=== PATIENT | female | born 2000 | race Caucasian/White ===

== ENCOUNTER 2018-09-14 09:24 | Observation (INO) | payer BC ==
--- NOTE | 2018-09-14 09:58 | ERPHSYRPT ---
- History of Present Illness Time Seen by Provider: 09/14/18 09:40 Source: patient, family Exam Limitations: no limitations Physician History: The patient is a 18-year-old female with her mother complaining of bilateral bicep pain and stiffness since Saturday (5 days ago) since lifting weights at that time. The stiffness is not as bad as it was initially. She denies fever or chills. She denies numbness or tingling. She states her urine is darker than usual. She and her mother are worried about rhabdomyolysis. Her boyfriend got rhabdomyolysis last year when he was weight lifting for his baseball team. 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 She has been taking ibuprofen. Her past medical history is unremarkable. Occurred: days ago (5) Method of Injury: sports injury Quality: aching, tightness Severity of Pain-Max: moderate Severity of Pain-Current: moderate Extremities Pain Location: arm: bilateral Modifying Factors: Improves With: nothing Associated Symptoms: none Allergies/Adverse Reactions: No Known Drug Allergies Allergy (Unverified 09/14/18 09:52) Home Medications: Escitalopram Oxalate [Lexapro] 20 mg PO DAILY 09/14/18 [History] Norgestimate-Ethinyl Estradiol [Tri Femynor 28 Tablet] 1 ea PO DAILY 09/14/18 [ History] - Review of Systems Constitutional: No Fever, No Chills Eyes: No Symptoms Ears, Nose, & Throat: No Symptoms Respiratory: No Cough, No Dyspnea Cardiac: No Chest Pain, No Edema, No Syncope Abdominal/Gastrointestinal: No Abdominal Pain, No Nausea, No Vomiting, No Diarrhea Genitourinary Symptoms: No Dysuria Musculoskeletal: Injury, Myalgias Skin: No Rash Neurological: No Dizziness, No Focal Weakness, No Sensory Changes Psychological: No Symptoms Endocrine: No Symptoms Hematologic/Lymphatic: No Symptoms Immunological/Allergic: No Symptoms All Other Systems: Reviewed and Negative - Nursing Vital Signs Nursing Vital Signs: Initial Vital Signs Temperature 98.2 F 09/14/18 09:37 Pulse Rate 72 09/14/18 09:37 Respiratory Rate 18 09/14/18 09:37 Blood Pressure 130/71 09/14/18 09:37 O2 Sat by Pulse Oximetry 99 09/14/18 09:37 Pain Scale Pain Intensity 4 - Physical Exam General Appearance: alert Eyes, Ears, Nose, Throat Exam: moist mucous membranes Neck Exam: non-tender, supple Cardiovascular/Respiratory Exam: chest non-tender, normal breath sounds, regular rate/rhythm, no respiratory distress Abdominal Exam: non-tender, No guarding Back Exam: normal inspection, No vertebral tenderness Shoulder Exam: normal inspection Elbow/Forearm Exam: soft tissue tenderness (Examination of the right biceps shows some mild limited range of motion with full extension. There is mild tenderness to palpation of the biceps. Examination of the left biceps shows normal range of motion.) Wrist Exam: normal inspection Hand Exam: normal inspection Neuro/Tendon Exam: normal sensation, normal motor functions Mental Status Exam: alert, oriented x 3, cooperative Skin Exam: normal color, warm, dry SpO2 Interpretation: normal Oxygen Delivery: Room Air Ordered Tests: Active Orders 24 hr Category Date Time Status CBC W DIFF Stat Lab 09/14/18 10:15 Completed CK (IN-HOUSE) [CK-Creatinine Phosphokinase] Stat Lab 09/14/18 10:15 Completed CMP Stat Lab 09/14/18 10:15 Completed ESR [Erythrocyte Sedimentation Rate] Stat Lab 09/14/18 10:15 Completed Lab/Rad Data: Laboratory Result Diagrams 09/14/18 10:15 09/14/18 10:15 Laboratory Results 09/14/18 09/14/18 09/14/18 Range/Units 10:15 10:15 10:15 WBC 7.5 (4.0-10.5) K/mm3 RBC 3.90 L (4.1-5.4) M/mm3 Hgb 12.1 (12.0-16.0) gm/dl Hct 36.1 (35-47) % MCV 92.6 (78-100) fl MCH 31.0 (26-32) pg MCHC 33.5 (32-36) g/dl RDW 12.4 (11.5-14.0) % Plt Count 279 (150-450) K/mm3 MPV 10.7 H (6-9.5) fl Gran % 61.3 (36.0-66.0) % Eos # (Auto) 0.21 (0-0.5) Absolute Lymphs (auto) 2.15 (1.0-4.6) Absolute Monos (auto) 0.53 (0.0-1.3) Lymphocytes % 28.6 (24.0-44.0) % Monocytes % 7.0 (0.0-12.0) % Eosinophils % 2.8 (0.00-5.0) % Basophils % 0.3 (0.0-0.4) % Absolute Granulocytes 4.62 (1.4-6.9) Basophils # 0.02 (0-0.4) ESR 13 (0-20) mm/hr Sodium 142 (137-145) mmol/L Potassium 3.8 (3.5-5.1) mmol/L Chloride 107 (98-107) mmol/L Carbon Dioxide 26 (22-30) mmol/L Anion Gap 13.6 (5-15) MEQ/L BUN 12 (7-17) mg/dL Creatinine 0.79 (0.52-1.04) mg/dL Estimated GFR > 60.0 ML/MIN Glucose 108 H (74-106) mg/dL Calcium 9.2 (8.4-10.2) mg/dL Total Bilirubin 0.50 (0.2-1.3) mg/dL AST 156 H (14-36) U/L ALT 67 H (0-35) U/L Alkaline Phosphatase 59 (38-126) U/L Creatine Kinase 8587 H (30-135) U/L Serum Total Protein 6.7 (6.3-8.2) g/dL Albumin 4.0 (3.5-5.0) g/dL - Progress Progress: unchanged Discussed with : Cat Will see patient in: hospital (full admit) Counseled pt/family regarding: lab results, diagnosis - Departure Time of Disposition: 11:32 Departure Disposition: In-patient Admission (per Dr Shelton) Clinical Impression: Rhabdomyolysis, Elevated LFTs Condition: Stable Critical Care Time: No Referrals: JUANITA CARLSON NP [Primary Care Provider] -
[2018-09-14 10:27] LABS: BASOPHIL % 0.3 % (0.0-0.4); Basophil (Absolute #) 0.02 (0-0.4); Eosinophil % 2.8 % (0.00-5.0); Eosinophil (Absolute #) 0.21 (0-0.5); Granulocytes % 61.3 % (36.0-66.0); Hematocrit 36.1 % (35-47); Hemoglobin 12.1 gm/dl (12.0-16.0); Lymphocyte (Absolute #) 2.15 (1.0-4.6); Lymphocytes % 28.6 % (24.0-44.0); Mean Cell Volume 92.6 fl (78-100); Mean Corpuscular Hgb Concent. 33.5 g/dl (32-36); Mean Platelet Volume 10.7 fl (6-9.5); Monocyte (Absolute #) 0.53 (0.0-1.3); Platelet Count 279 K/mm3 (150-450); Red Cell Distribution Width 12.4 % (11.5-14.0); White Blood Count 7.5 K/mm3 (4.0-10.5)
[2018-09-14 10:34] LABS: ALKALINE PHOSPHATASE 59 U/L (38-126); ANION GAP 13.6 MEQ/L (5-15); BLOOD UREA NITROGEN 12 mg/dL (7-17); CHLORIDE 107 mmol/L (98-107); Calcium 9.2 mg/dL (8.4-10.2); Carbon Dioxide 26 mmol/L (22-30); Creatinine 1 0.79 mg/dL (0.52-1.04); Glucose 108 mg/dL (74-106); Potassium 3.8 mmol/L (3.5-5.1); SGOT/AST 156 U/L (14-36); SGPT/ALT 67 U/L (0-35); SODIUM 142 mmol/L (137-145); Total Protein 6.7 g/dL (6.3-8.2)
[2018-09-14 10:53] LABS: CK-Creatinine Phosphokinase 8587 U/L (30-135)
[2018-09-14 11:49] LABS: A-aADO2 5; ABG HEMOGLOBIN 12.7; ABG POTASSIUM 4.1 (3.5-5.1); ABG SITE RIGHT RADIAL; ARTERIAL BLD GAS O2 SATURATION 98.4 % (95-100); ARTERIAL BLOOD GAS BASE EXCESS 4.9 (-2.0-2.0); ARTERIAL BLOOD GAS FIO2 21 %; ARTERIAL BLOOD GAS PCO2 41 mmHg (35-45); ARTERIAL BLOOD GAS PO2 93 mmHg (75-100); ARTERIAL BLOOD GAS pH 7.46 (7.35-7.45); CARBOXYHEMOGLOBIN 1.3 % THgb (0.0-6.9); HCO3- 29.2 (22-28); HGB O2 SAT 95.8 g/dF (94-100); Methhemoglobin 1.3 % (1.4-1.5); paO2 pAO1 0.95
[2018-09-14 11:50] LABS: ALLEN TEST OK? YES
[2018-09-14] MEDS ORDERED: TYLENOL 325 MG PO PRN (12:21)
[2018-09-14] MEDS ORDERED: Zofran 4 MG/2 ML VIAL IV PRN (12:21)
[2018-09-14] MEDS: Sodium Chloride 0.9% 1000 ML 1,000 ML IV SCH ×2 (13:28→23:34)
[2018-09-14] MEDS ORDERED: MEDICATION INTERVENTION MC SCH (16:45)
[2018-09-14] MEDS ORDERED: NORCO 5/325 MG PO PRN (21:13)
--- NOTE | 2018-09-14 21:13 | PCM.HP ---
History of Present Illness - Chief Complaint Chief Complaint: Rhabdomylosis, Elevated LFT History of Present Illness: is a 18 year old female pt of Dr. Anderson who was seen in ER for bilat upper arm pain and was found to have rhabdomyolysis. She worked out her legs last Saturday (6d ago) without difficulty. The next day she worked her upper body then that night started having pain in the bilat upper extremities, just proximal to her elbows. She also thought her urine was darker than usual throughout the week, although not brown, despite drinking large amounts of water including a literal gallon of water on Saturday night. She was found to have a CK of 8,587 in the ER with BUN/Cr that were normal. She was admitted for IV fluids. She is still having bilat arm pain and would like some pain medicine this evening. Has been previously healthy and received her vaccinations. - Review of Systems Abdominal/Gastrointestinal: Other (soft stools this morning) Musculoskeletal: Other (bilat UE pain) All Other Systems: Reviewed and Negative Medications & Allergies Home Medications: Home Medication List Escitalopram Oxalate [Lexapro] 20 mg PO DAILY 09/14/18 [History Confirmed ] Norgestimate-Ethinyl Estradiol [Tri Femynor 28 Tablet] 1 ea PO DAILY 09/14/18 [ History Confirmed 09/14/18] Allergies/Adverse Reactions: Allergies Allergy/AdvReac Type Severity Reaction Status Date / Time No Known Drug Allergies Allergy Unverified 09/14/18 09:52 - Past Medical History Past Medical History: No - Female History Hx Last Menstrual Period: 2 weeks Are you now?: No - Past Surgical History Past Surgical History: Yes Musculskeletal Surgical Hx: Other Other Surgical History: pin in thumb - Social History Smoking Status: Never smoker Exposure to second hand smoke: No Alcohol: None Drug Use: none - Physical Exam Vital Signs: Vital Signs - 24 hr Temp Pulse Resp BP Pulse Ox 09/14/18 20:00 98.4 F 70 18 103/53 99 09/14/18 16:00 98.1 F 78 16 125/77 99 09/14/18 12:44 99.1 F 80 20 125/69 96 09/14/18 11:25 78 16 136/76 98 09/14/18 09:37 98.2 F 72 18 130/71 99 General Appearance: no apparent distress, alert Neurologic Exam: oriented x 3, cooperative Eye Exam: eyes nml inspection Ears, Nose, Throat Exam: moist mucous membranes Respiratory Exam: normal breath sounds, lungs clear, No crackles/rales, No rhonchi, No wheezing Cardiovascular Exam: regular rate/rhythm, normal heart sounds, No murmur Gastrointestinal/Abdomen Exam: soft, normal bowel sounds, No tenderness, No distention, No mass, No guarding, No rebound Back Exam: normal inspection, No CVA tenderness, No rash Extremity Exam: normal inspection, other (ttp just proximal to elbows anteriorly , bilat, with some fullness in the area. no erythema/lesions/exudate. no overt edema. LE no c/c/e) Skin Exam: normal color, warm, dry, No rash Results - Labs Lab/Micro Results: Lab Results-Last 24 Hours 09/14/18 09/14/18 09/14/18 Range/Units 10:15 10:15 10:15 WBC 7.5 (4.0-10.5) K/mm3 RBC 3.90 L (4.1-5.4) M/mm3 Hgb 12.1 (12.0-16.0) gm/dl Hct 36.1 (35-47) % MCV 92.6 (78-100) fl MCH 31.0 (26-32) pg MCHC 33.5 (32-36) g/dl RDW 12.4 (11.5-14.0) % Plt Count 279 (150-450) K/mm3 MPV 10.7 H (6-9.5) fl Gran % 61.3 (36.0-66.0) % Eos # (Auto) 0.21 (0-0.5) Absolute Lymphs (auto) 2.15 (1.0-4.6) Absolute Monos (auto) 0.53 (0.0-1.3) Lymphocytes % 28.6 (24.0-44.0) % Monocytes % 7.0 (0.0-12.0) % Eosinophils % 2.8 (0.00-5.0) % Basophils % 0.3 (0.0-0.4) % Absolute Granulocytes 4.62 (1.4-6.9) Basophils # 0.02 (0-0.4) ESR 13 (0-20) mm/hr Puncture Site pCO2 (35-45) mmHg pO2 (75-100) mmHg Base Excess (-2.0-2.0) O2 Saturation (94-100) g/dF ABG pH (7.35-7.45) ABG HCO3 (22-28) ABG O2 Sat (Measured) (95-100) % Dustin Test A-a Gradient a/A Ratio Hemoglobin Carboxyhemoglobin (0.0-6.9) % THgb Methemoglobin (1.4-1.5) % Temperature C POC O2 Flow Rate % Sodium 142 (137-145) mmol/L Potassium 3.8 (3.5-5.1) mmol/L Chloride 107 (98-107) mmol/L Carbon Dioxide 26 (22-30) mmol/L Anion Gap 13.6 (5-15) MEQ/L BUN 12 (7-17) mg/dL Creatinine 0.79 (0.52-1.04) mg/dL Estimated GFR > 60.0 ML/MIN Glucose 108 H (74-106) mg/dL Lactic Acid (0.4-2.0) Uric Acid (2.6-6.0) mg/dL Calcium 9.2 (8.4-10.2) mg/dL Total Bilirubin 0.50 (0.2-1.3) mg/dL AST 156 H (14-36) U/L ALT 67 H (0-35) U/L Alkaline Phosphatase 59 (38-126) U/L Creatine Kinase 8587 H (30-135) U/L Serum Total Protein 6.7 (6.3-8.2) g/dL Albumin 4.0 (3.5-5.0) g/dL 09/14/18 09/14/18 09/14/18 Range/Units 10:15 11:45 11:45 WBC (4.0-10.5) K/mm3 RBC (4.1-5.4) M/mm3 Hgb (12.0-16.0) gm/dl Hct (35-47) % MCV (78-100) fl MCH (26-32) pg MCHC (32-36) g/dl RDW (11.5-14.0) % Plt Count (150-450) K/mm3 MPV (6-9.5) fl Gran % (36.0-66.0) % Eos # (Auto) (0-0.5) Absolute Lymphs (auto) (1.0-4.6) Absolute Monos (auto) (0.0-1.3) Lymphocytes % (24.0-44.0) % Monocytes % (0.0-12.0) % Eosinophils % (0.00-5.0) % Basophils % (0.0-0.4) % Absolute Granulocytes (1.4-6.9) Basophils # (0-0.4) ESR (0-20) mm/hr Puncture Site RIGHT RADIAL pCO2 41 (35-45) mmHg pO2 93 (75-100) mmHg Base Excess 4.9 H (-2.0-2.0) O2 Saturation 95.8 (94-100) g/dF ABG pH 7.46 H (7.35-7.45) ABG HCO3 29.2 H* (22-28) ABG O2 Sat (Measured) 98.4 (95-100) % Dustin Test YES A-a Gradient 5 a/A Ratio 0.95 Hemoglobin 12.7 Carboxyhemoglobin 1.3 (0.0-6.9) % THgb Methemoglobin 1.3 L (1.4-1.5) % Temperature 37.0 C POC O2 Flow Rate 21 % Sodium (137-145) mmol/L Potassium 4.1 (3.5-5.1) mmol/L Chloride (98-107) mmol/L Carbon Dioxide (22-30) mmol/L Anion Gap (5-15) MEQ/L BUN (7-17) mg/dL Creatinine (0.52-1.04) mg/dL Estimated GFR ML/MIN Glucose (74-106) mg/dL Lactic Acid 0.8 (0.4-2.0) Uric Acid 6.0 (2.6-6.0) mg/dL Calcium (8.4-10.2) mg/dL Total Bilirubin (0.2-1.3) mg/dL AST (14-36) U/L ALT (0-35) U/L Alkaline Phosphatase (38-126) U/L Creatine Kinase (30-135) U/L Serum Total Protein (6.3-8.2) g/dL Albumin (3.5-5.0) g/dL Assessment/Plan (1) Rhabdomyolysis Current Visit: Yes Status: Acute Onset Date: ~09/14/18 Qualifiers: Encounter type: initial encounter Assessment & Plan: She is on NS at 100cc/hr. Renal function looked good in ER. Repeating labs in the morning. I discussed that she may expect a several day stay and that if renal function suffers she may or may not end up with a nephrology consult. Code(s): M62.82 - RHABDOMYOLYSIS
[2018-09-14] MEDS ORDERED: BENADRYL 50 MG/ML IV PRN (21:29)
[2018-09-14] MEDS ORDERED: Lexapro 10 MG PO SCH (22:00)
[2018-09-15 04:34] VITALS: O2SAT 98
[2018-09-15 05:42] LABS: BASOPHIL % 0.3 % (0.0-0.4); Basophil (Absolute #) 0.02 (0-0.4); Eosinophil % 2.7 % (0.00-5.0); Granulocytes % 56.4 % (36.0-66.0); Hematocrit 35.8 % (35-47); Hemoglobin 11.6 gm/dl (12.0-16.0); Lymphocyte (Absolute #) 2.45 (1.0-4.6); Lymphocytes % 33.6 % (24.0-44.0); Mean Cell Volume 93.7 fl (78-100); Mean Corpuscular Hgb Concent. 32.4 g/dl (32-36); Mean Platelet Volume 10.4 fl (6-9.5); Monocyte (Absolute #) 0.51 (0.0-1.3); Platelet Count 273 K/mm3 (150-450); Red Blood Count 3.82 M/mm3 (4.1-5.4); Red Cell Distribution Width 12.6 % (11.5-14.0); White Blood Count 7.3 K/mm3 (4.0-10.5)
[2018-09-15 05:55] LABS: Mean Corpuscular Hemoglobin 30.3 pg (26-32)
[2018-09-15 07:16] LABS: ALBUMIN 3.7 g/dL (3.5-5.0); ALKALINE PHOSPHATASE 58 U/L (38-126); BLOOD UREA NITROGEN 10 mg/dL (7-17); Carbon Dioxide 26 mmol/L (22-30); Creatinine 1 0.84 mg/dL (0.52-1.04); Glucose 94 mg/dL (74-106); Potassium 4.6 mmol/L (3.5-5.1); SGOT/AST 110 U/L (14-36); SGPT/ALT 66 U/L (0-35); SODIUM 139 mmol/L (137-145); Total Protein 6.6 g/dL (6.3-8.2)
[2018-09-15 07:17] LABS: ANION GAP 11.1 MEQ/L (5-15); CHLORIDE 107 mmol/L (98-107); Calcium 8.8 mg/dL (8.4-10.2)
[2018-09-15 08:07] VITALS: BP 116/55; PULSE 70
--- NOTE | 2018-09-15 09:29 | SSS ---
DISCHARGE DIAGNOSIS: RHABDOMYOLYSIS. HISTORY: The patient is a 18 year-old white female who reports bilateral biceps pain and stiffness. She reports lifting weights at home. She had developed stiffness and was feeling and presented herself to the emergency room with concern for rhabdomyolysis. She reports her boyfriend had previous episode of rhabdomyolysis last year and she was concerned for the possibility of this occurring. The patient was seen in the emergency room and was found to have a CPK of over 8,000 and was admitted to the hospital for IV fluid hydration and monitoring of renal functions. PAST MEDICAL HISTORY: Essentially unremarkable other than for depression for which she takes Lexapro 20 mg daily. HOME MEDICATIONS: Lexapro 20 mg daily, control pills daily. ALLERGIES: NKDA. PHYSICAL EXAMINATION: Revealed a moderately obese white female with temperature 98.2F on admission, pulse 72, respiratory rate 18, blood pressure 130/71. O2 saturation 99% on room air. HEENT: Normocephalic, atraumatic. Pupils equal round reactive to light. Extraocular movements intact. Oropharynx is pink and moist. NECK: Supple without lymphadenopathy, thyromegaly or JVD. CHEST: Clear to auscultation with good air movement bilaterally. HEART: Regular rate and rhythm without murmurs, rubs or gallops. ABDOMEN: Soft, nontender, nondistended without hepatosplenomegaly or masses. EXTREMITIES: Without clubbing, cyanosis or edema. NEUROLOGIC: The patient is alert and oriented x3. LAB DATA AND TESTS: The patient's initial laboratory studies showed lactic acid of 0.8, uric acid 6.0. Her pH was 7.46, pCO2 41, pO2 93 on room air. Sed rate was 13. Her sugar was 108 nonfasting, BUN 12, creatinine 0.79. AST elevated at 156. ALT 67. CPK 8,587. White blood cell count 7.5, hemoglobin 12.1, PLT count 279,000. HOSPITAL COURSE: The patient was admitted to the medicine rose, given IV fluid hydration. She continued to drink fluids. She reports she had been pushing fluids by mouth. Her CPK dropped to 4,485 by the next morning. She was feeling better and eating fine. Her lactic acid was 0.8. CBC was normal again. Metabolic panel showed glucose 94, BUN 10, creatinine 0.84. Her AST was down to 110 with ALT 66. The patient was felt to be ready for discharge home at this time. She will follow up in the office in four days for further evaluation, recheck CPK, BUN, creatinine and liver enzymes. She was instructed to stay away from sporting events and just take it easy over the next four days until she is seen again in the office. She is to return if she has any further problems with increasing muscle pain, dark-colored urine or worsening of her myalgia.
[2018-09-15] MEDS ORDERED: NORGESTIMATE ETHINYL ESTRADIOL PO SCH (10:00)
[2018-09-15] MEDS ORDERED: Lexapro 10 MG PO SCH (10:00)
[2018-09-15] MEDS ORDERED: NON-FORMULARY ITEM (Escitalopram Oxalate [Lexapro] 20 MG) PO SCH (10:00)
== END 2018-09-15 10:44 | disposition home or self-care (01) ==
LOC: ED 09:24 → MED SURG 12:15 → INTOOBSV 12:15
PROVIDERS: ADMIT Family Medicine; ATTEND Family Medicine
DX: M62.82 Rhabdomyolysis (principal)
CPT/HCPCS: 36415; 36600; 80053; 82375; 82550; 82803; 83605; 84550; 85025; 85652; 99285; G0378; 99284; J1200; J2405; A9270-GY

== ENCOUNTER 2019-04-14 21:51 | Emergency (ER) | payer BC ==
--- NOTE | 2019-04-14 22:21 | ERPHSYRPT ---
- History of Present Illness Time Seen by Provider: 04/14/19 22:15 Source: patient, family Exam Limitations: no limitations Patient Subjective Stated Complaint: Pt states she has had a headache for 4 days. Has been taking Ibuprofen with no relief of pain. States she is sensitive to light and had nausea and vomiting. Pt states pain is all over but feels like someone is shoving an ice pick into her temples. Feels disoriented Triage Nursing Assessment: Pt a & o. Was curled up in waiting room with a washcloth over her eyes. Ambulated to room. Respirations easy and non-labored. No history of headaches or migraines. Physician History: 19 y/o white female with no prior h/o migraine headaches presents with global severe headache with light sensitivity for 4 days. no neck pain. no fevers and no flulike sx. this is the worst headache she has ever had. pt did have n/v earlier today Timing/Duration: day(s) (4) Quality: aching, throbbing Head Pain Location: global Severity of Pain-Max: moderate Severity of Pain-Current: moderate Recent Head Trauma: no recent headache/trauma Modifying Factors: Improves With: exposure to light, noise Associated Symptoms: nausea/vomiting, sensitive to light Previous symptoms: no prior history Allergies/Adverse Reactions: No Known Drug Allergies Allergy (Unverified 09/14/18 09:52) Home Medications: Escitalopram Oxalate [Lexapro] 20 mg PO DAILY 09/14/18 [History] Norgestimate-Ethinyl Estradiol [Tri Femynor 28 Tablet] 1 ea PO DAILY 09/14/18 [ History] - Review of Systems Constitutional: No Symptoms Eyes: Photophobia Ears, Nose, & Throat: No Symptoms Respiratory: No Symptoms Cardiac: No Symptoms Abdominal/Gastrointestinal: No Symptoms Genitourinary Symptoms: No Symptoms Musculoskeletal: No Symptoms Skin: No Symptoms Neurological: No Symptoms Psychological: No Symptoms Endocrine: No Symptoms Hematologic/Lymphatic: No Symptoms Immunological/Allergic: No Symptoms All Other Systems: Reviewed and Negative - Past Medical History Pertinent Past Medical History: Yes Neurological History: No Pertinent History ENT History: No Pertinent History Cardiac History: No Pertinent History Respiratory History: No Pertinent History Endocrine Medical History: No Pertinent History Musculoskeletal History: Other GI Medical History: No Pertinent History History: No Pertinent History Psycho-Social History: Anxiety Female Reproductive Disorders: No Pertinent History Other Medical History: rhabdomylosis - Past Surgical History Past Surgical History: Yes Neuro Surgical History: No Pertinent History Cardiac: No Pertinent History Respiratory: No Pertinent History Gastrointestinal: No Pertinent History Genitourinary: No Pertinent History Musculoskeletal: Other Female Surgical History: No Pertinent History Other Surgical History: pin in thumb. wisdom teeth removed - Social History Smoking Status: Never smoker Exposure to second hand smoke: No Drug Use: none Patient Lives Alone: No - Female History Hx Last Menstrual Period: 04/11/19 Hx Now: No - Nursing Vital Signs Nursing Vital Signs: Initial Vital Signs Temperature 98.2 F 04/14/19 21:59 Pulse Rate 76 04/14/19 21:59 Respiratory Rate 18 04/14/19 21:59 Blood Pressure 110/70 04/14/19 21:59 O2 Sat by Pulse Oximetry 99 04/14/19 21:59 Pain Scale Pain Intensity 7 - Physical Exam General Appearance: moderate distress, alert, anxiety Eye Exam: PERRL/EOMI, eyes nml inspection Ears, Nose, Throat Exam: normal ENT inspection, TMs normal, moist mucous membranes Neck Exam: normal inspection, non-tender, supple, full range of motion Respiratory Exam: normal breath sounds, lungs clear, airway intact, No chest tenderness, No respiratory distress Cardiovascular Exam: regular rate/rhythm, normal heart sounds, normal peripheral pulses Gastrointestinal/Abdominal Exam: No tenderness Back Exam: normal inspection, normal range of motion, No CVA tenderness, No vertebral tenderness Extremity Exam: normal inspection, normal range of motion, pelvis stable Mental Status Exam: alert, oriented x 3, cooperative line cleaner Exam: normal hearing, normal speech, PERRL, tongue midline Coordination/Gait Exam: normal finger to nose, normal gait, normal cerebellar function Motor/Sensory Exam: no motor deficit, no sensory deficit, no pronator drift Skin Exam: normal color, warm, dry Lymphatic Exam: No adenopathy SpO2 Interpretation: normal SpO2: 99 O2 Delivery: Room Air - Course Nursing assessment & vital signs reviewed: Yes Ordered Tests: Active Orders 24 hr Category Date Time Status HEAD WITHOUT CONTRAST [CT] Stat Exams 04/14/19 22:59 Taken Medication Summary Discontinued Medications Generic Name Dose Route Start Last Admin Trade Name Freq PRN Reason Stop Dose Admin Hydromorphone HCl 0.5 mg 04/14/19 23:00 04/14/19 23:11 Hydromorphone 1 Mg/Ml Ampule IM 04/14/19 23:01 0.5 mg STAT ONE Administration Hydromorphone HCl Confirm 04/14/19 23:05 Hydromorphone 1 Mg/Ml Ampule Administered 04/14/19 23:06 Dose 1 mg .ROUTE .STK-MED ONE Promethazine HCl 12.5 mg 04/14/19 23:00 04/14/19 23:11 Phenergan 25 Mg Inj IM 04/14/19 23:01 12.5 mg STAT ONE Administration Promethazine HCl Confirm 04/14/19 23:05 Phenergan 25 Mg Inj Administered 04/14/19 23:06 Dose 25 mg .ROUTE .STK-MED ONE - Progress Progress: improved Air Movement: good Progress Note: 04/15/19 00:44 ct head-no acute intracranial pathology Blood Culture(s) Obtained: No Antibiotics given: No Counseled pt/family regarding: diagnosis, need for follow-up, rad results - Departure Departure Disposition: Home (migraine headache) Clinical Impression: Migraine headache Condition: Stable Critical Care Time: No Referrals: PATRIA CROSS [Primary Care Provider] - Additional Instructions: follow up with primary doctor for further management.
[2019-04-14] MEDS ORDERED: Hydromorphone 1 mg/ml Ampule ONE (23:05)
[2019-04-14] MEDS ORDERED: Phenergan 25 MG INJ ONE (23:05)
[2019-04-14] MEDS: Phenergan 25 MG INJ IM ONE (23:11)
[2019-04-14] MEDS: Hydromorphone 1 mg/ml Ampule IM ONE (23:11)
[2019-04-15 00:15] VITALS: PULSE 68
[2019-04-15] MEDS ORDERED: NORCO 5/325 MG ONE (01:08)
[2019-04-15] MEDS: NORCO 5/325 MG PO ONE (01:08)
[2019-04-15 01:47] VITALS: BP 123/62; O2SAT 97
--- NOTE | 2019-04-15 09:01 | XRAY ---
Indication: Headache and eye pressure 4 days. No known injury. Multiple contiguous axial images obtained through the head without contrast. Comparison: July 06, 2016. Again normal appearing brain parenchyma, ventricles, and bony calvarium. Visualized paranasal sinuses and mastoid air cells are clear. Impression: Normal CT head without contrast exam. Comment: Preliminary interpretation was made by [facility]. No discrepancy. CT DI 70.38
== END 2019-04-15 01:49 | disposition home or self-care (01) ==
LOC: ED 21:51
DX: G43.009 Migraine without aura, not intractable, without status migrainosus (principal)
CPT/HCPCS: 70450; 96372; 99284; J1170; J2550; A9270-GY

== ENCOUNTER 2019-09-21 20:34 | Emergency (ER) | payer BC ==
--- NOTE | 2019-09-21 21:24 | ERPHSYRPT ---
- History of Present Illness Time Seen by Provider: 09/21/19 21:24 Source: patient Exam Limitations: no limitations Patient Subjective Stated Complaint: PT STATES SHE HAD AN ELEVATED CK IN LAB, URINE SHOED BLOOD AND PROTEIN, PT WAS CALLED AND TOLD TO COME IN IF SHE EXPERIENNCED CP. PT IS HAVING CP AT THIS TIME THAT ALSO RADIATES TO R SIDE OF NECK. Triage Nursing Assessment: PT HAS PAIN IN CHEST WHEN TAKING DEEP BREATH, RATES PAIN IN CHEST AT 8/10. PT STATES SHE IS CONCERNED BECAUSE SHE HAS HAD RABDO IN THE PAST Physician History: The patient is a 19-year-old female who presents with a chief complaint of chest pain. Onset for her is 1-2 hours prior to arrival. Her pain is described as a sharp pain located under both sides of her rib cage that increases when she takes a deep breath. She denies shortness of breath, fever, chills, cough, nausea, vomiting or diaphoresis. She states she just recently had her labs recently checked because she had protein in her ear and and has a history of rhabdomyolysisin her CK was reportedly elevated. She states that she was informed of this today via telephone. She does have a history of anxiety as well as depression but does not think these are her typical anxiety symptoms. She reports that she does take control but denies history of PE/DVT, recent immobilization or surgeries, in known malignancy She has not taken anything for pain prior to arrival. She was accompanied in the emergency department by multiple family members. Allergies/Adverse Reactions: No Known Drug Allergies Allergy (Verified 09/21/19 21:01) Home Medications: Escitalopram Oxalate [Lexapro] 20 mg PO DAILY 09/14/18 [History] Norgestimate-Ethinyl Estradiol [Tri Femynor 28 Tablet] 1 ea PO DAILY 09/14/18 [ History] Vortioxetine Hydrobromide [Trintellix] 10 mg PO DAILY 09/21/19 [History] Immunizations Up to Date: Yes - Review of Systems Constitutional: No Fever, No Chills Respiratory: No Dyspnea, No Dyspnea on Exertion (MACARIO) Cardiac: Chest Pain, No Edema, No Palpitations, No Syncope Abdominal/Gastrointestinal: No Abdominal Pain, No Nausea, No Vomiting Genitourinary Symptoms: No Dysuria, No Frequency, No Hematuria Musculoskeletal: No Symptoms Skin: No Symptoms Neurological: No Symptoms Psychological: No Symptoms Endocrine: No Symptoms Hematologic/Lymphatic: No Symptoms Immunological/Allergic: No Symptoms All Other Systems: Reviewed and Negative - Past Medical History Pertinent Past Medical History: Yes Neurological History: No Pertinent History ENT History: No Pertinent History Cardiac History: No Pertinent History Respiratory History: No Pertinent History Endocrine Medical History: No Pertinent History Musculoskeletal History: Other GI Medical History: No Pertinent History History: No Pertinent History Psycho-Social History: Anxiety Female Reproductive Disorders: No Pertinent History Other Medical History: RABDO, HYPERTENSION - Past Surgical History Past Surgical History: Yes Neuro Surgical History: No Pertinent History Cardiac: No Pertinent History Respiratory: No Pertinent History Gastrointestinal: No Pertinent History Genitourinary: No Pertinent History Musculoskeletal: Other Female Surgical History: No Pertinent History Other Surgical History: L THUMB, WISDOM TEETH EXTRACTION - Social History Smoking Status: Never smoker Exposure to second hand smoke: No Drug Use: none Patient Lives Alone: No - Female History Hx Last Menstrual Period: 09/06/19 Hx Now: No - Nursing Vital Signs Nursing Vital Signs: Initial Vital Signs Temperature 98.2 F 09/21/19 20:38 Pulse Rate 102 H 09/21/19 20:38 Respiratory Rate 18 09/21/19 20:38 Blood Pressure 151/88 09/21/19 20:38 O2 Sat by Pulse Oximetry 100 09/21/19 20:38 Pain Scale Pain Intensity 3 - Physical Exam General Appearance: no apparent distress, alert Eye Exam: PERRL/EOMI, No photophobia Ears, Nose, Throat Exam: pharynx normal, moist mucous membranes, No pharyngeal erythema, No tonsillar exudate Neck Exam: normal inspection, supple Respiratory Exam: normal breath sounds, airway intact, No chest tenderness, No lungs clear, No respiratory distress, No diminished breath sounds, No accessory muscle use, No prolonged expirations, No crackles/rales, No rhonchi, No wheezing , No stridor Cardiovascular Exam: regular rate/rhythm, normal heart sounds, normal peripheral pulses, tachycardia, capillary refill <2 sec, No murmur, No friction rub, No gallop Gastrointestinal/Abdomen Exam: soft, No tenderness, No distention, No mass, No guarding Pelvic Exam: not done Rectal Exam: deferred Back Exam: normal inspection Extremity Exam: normal inspection, No calf tenderness, No deformities, No tenderness Neurologic Exam: alert, oriented x 3, cooperative Skin Exam: normal color, warm, dry, No rash, No petechiae, No jaundice SpO2 Interpretation: normal SpO2: 100 O2 Delivery: Room Air - Course Nursing assessment & vital signs reviewed: Yes EKG Interpreted by Me: RATE (89), NORMAL AXIS, NORMAL INTERVALS, NORMAL QRS, Other (No evidence of acute myocardial ischemia or injury) - Radiology Exams Chest X-ray Interpretation: Interpreted by me, Negative - CT Exams Chest CT Interpretation: Negative, Tele-radiologist Report Ordered Tests: Active Orders 24 hr Category Date Time Status CHEST 2 VIEWS (PA AND LAT) Stat Exams 09/21/19 21:38 Taken CHEST WITH CONTRAST [CT] Stat Exams 09/22/19 00:03 Taken BMP Stat Lab 09/21/19 23:00 Completed CBC W DIFF Stat Lab 09/21/19 23:00 Completed CK-Creatinine Phosphokinase Stat Lab 09/21/19 23:00 Completed D-DIMER QUANTITATIVE Stat Lab 09/21/19 23:00 Completed TROPONIN Stat Lab 09/21/19 23:00 Completed Medication Summary Discontinued Medications Generic Name Dose Route Start Last Admin Trade Name Freq PRN Reason Stop Dose Admin Diphenhydramine HCl 25 mg 09/22/19 00:40 09/22/19 00:42 Benadryl 50 Mg/Ml IV 09/22/19 00:41 25 mg STAT ONE Administration Diphenhydramine HCl Confirm 09/22/19 00:40 Benadryl 50 Mg/Ml Administered 09/22/19 00:41 Dose 50 mg .ROUTE .STK-MED ONE Ketorolac Tromethamine 15 mg 09/21/19 21:39 09/21/19 22:49 Toradol 30 Mg Injection IV 09/21/19 21:40 15 mg STAT ONE Administration Ketorolac Tromethamine Confirm 09/21/19 21:49 Toradol 30 Mg Injection Administered 09/21/19 21:50 Dose 30 mg .ROUTE .STK-MED ONE Lab/Rad Data: Laboratory Result Diagrams 09/21/19 23:00 09/21/19 23:00 Laboratory Results 09/21/19 09/21/19 09/21/19 Range/Units 23:00 23:00 23:00 WBC 11.5 H (4.0-10.5) K/mm3 RBC 4.40 (4.1-5.4) M/mm3 Hgb 13.5 (12.0-16.0) gm/dl Hct 40.7 (35-47) % MCV 92.5 (78-100) fl MCH 30.7 (26-32) pg MCHC 33.2 (32-36) g/dl RDW 12.3 (11.5-14.0) % Plt Count 324 (150-450) K/mm3 MPV 11.4 H (7.5-11.0) fl Gran % 71.0 H (36.0-66.0) % Eos # (Auto) 0.16 (0-0.5) Absolute Lymphs (auto) 2.36 (1.0-4.6) Absolute Monos (auto) 0.79 (0.0-1.3) Lymphocytes % 20.5 L (24.0-44.0) % Monocytes % 6.8 (0.0-12.0) % Eosinophils % 1.4 (0.00-5.0) % Basophils % 0.3 (0.0-0.4) % Absolute Granulocytes 8.20 H (1.4-6.9) Basophils # 0.03 (0-0.4) D-Dimer 597 H* (215-500) ng/mL Sodium 139 (137-145) mmol/L Potassium 4.1 (3.5-5.1) mmol/L Chloride 103 (98-107) mmol/L Carbon Dioxide 27 (22-30) mmol/L Anion Gap 13.3 (5-15) MEQ/L BUN 22 H (7-17) mg/dL Creatinine 0.91 (0.52-1.04) mg/dL Estimated GFR > 60.0 ML/MIN Glucose 73 L (74-106) mg/dL Calcium 9.7 (8.4-10.2) mg/dL Creatine Kinase 837 H (30-135) U/L Troponin I < 0.012 (0.000-0.034) ng/mL Slides for Path Review YES - Progress Progress: improved Progress Note: 09/22/19 00:41 Patient got back from CT he is now complaining of pruritus to her face after receiving contrast dye. She denies any tongue swelling, difficulty breathing, difficulty swallowing or sore throat. She denies vomiting or diarrhea and abdominal pain. Suspect this is just a mild contrast allergy for which administered Benadryl. Counseled pt/family regarding: lab results, diagnosis, need for follow-up, rad results - Departure Departure Disposition: Home Clinical Impression: Chest pain, atypical, Elevated CK Condition: Stable Critical Care Time: No Referrals: JUANITA CARLSON, PSYCHIATRY PHYSICIAN [Primary Care Provider] - Instructions: Atypical Chest Pain Plan of Treatment: Nontoxic in appearance. The patient's labs, chest x-ray, CTA, and EKG were reviewed. Her EKG was unchanged from prior EKG. Labs are relatively reassuring with the exception of an elevated d-dimer which prompted a CT of her chest to rule out PE as well as dissection. Ultimately, her CT was negative. Currently, my level of suspicion for a serious at this time given her age and his factors. The patient is suffering from atypical chest pain and asked to have an anxiety component. Her CK was mildly elevated but less than 1000 and I reviewed her labs and her E. MR and appears her CK was just below 5000 on the 17 September. She did endorse that she was working out heavily prior to having this lab obtained. It appears to be trending down in her kidney function appears to be normal on her BMP. She is instructed to take the proximal for pain in addition to drinking plenty of fluids for hydration to avoid excessive weight lifting to avoid developing rhabdomyolysis in the future. She agreed with overtly elicited the discharge plan. Prescriptions: Naproxen 500 mg [Naprosyn 500 MG] 500 mg PO BID 5 Days #10 tablet
[2019-09-21] MEDS ORDERED: TORAdol 30 mg Injection IV ONE (21:39)
[2019-09-21] MEDS ORDERED: TORAdol 30 mg Injection ONE (21:49)
[2019-09-21 23:15] LABS: BASOPHIL % 0.3 % (0.0-0.4); Basophil (Absolute #) 0.03 (0-0.4); Eosinophil % 1.4 % (0.00-5.0); Eosinophil (Absolute #) 0.16 (0-0.5); Hematocrit 40.7 % (35-47); Hemoglobin 13.5 gm/dl (12.0-16.0); Lymphocyte (Absolute #) 2.36 (1.0-4.6); Lymphocytes % 20.5 % (24.0-44.0); Mean Cell Volume 92.5 fl (78-100); Mean Corpuscular Hemoglobin 30.7 pg (26-32); Mean Corpuscular Hgb Concent. 33.2 g/dl (32-36); Mean Platelet Volume 11.4 fl (7.5-11.0); Monocyte (Absolute #) 0.79 (0.0-1.3); Monocytes % 6.8 % (0.0-12.0); Platelet Count 324 K/mm3 (150-450); Red Cell Distribution Width 12.3 % (11.5-14.0); White Blood Count 11.5 K/mm3 (4.0-10.5)
[2019-09-21 23:46] LABS: ANION GAP 13.3 MEQ/L (5-15); BLOOD UREA NITROGEN 22 mg/dL (7-17); CHLORIDE 103 mmol/L (98-107); CK-Creatinine Phosphokinase 837 U/L (30-135); Calcium 9.7 mg/dL (8.4-10.2); Carbon Dioxide 27 mmol/L (22-30); Creatinine 1 0.91 mg/dL (0.52-1.04); Glucose 73 mg/dL (74-106); Potassium 4.1 mmol/L (3.5-5.1); SODIUM 139 mmol/L (137-145)
[2019-09-21 23:47] LABS: TROPONIN < 0.012 ng/mL (0.000-0.034)
[2019-09-22] MEDS ORDERED: BENADRYL 50 MG/ML IV ONE (00:40)
[2019-09-22] MEDS ORDERED: BENADRYL 50 MG/ML ONE (00:40)
[2019-09-22 01:25] LABS: Slide Review 1 YES
[2019-09-22 01:38] VITALS: BP 119/67; PULSE 81
[2019-09-22 01:41] VITALS: O2SAT 100
--- NOTE | 2019-09-22 08:46 | XRAY ---
Indication: Chest pain and elevated d-dimer. Multiple contiguous axial images obtained through the chest using 80 cc Isovue 370 contrast and PE protocol. Comparison: None There is good opacification of the pulmonary arteries to include the lobar and segmental branches. No filling defect or pulmonary embolus. Heart is not enlarged. Aorta is normal in course and caliber. No pathologic mediastinal/hilar lymphadenopathy. Lungs demonstrate minimal bilateral dependent atelectasis and tiny right posterior gutter calcified granuloma. No suspicious pulmonary mass, infiltrate, or effusion. Bony thorax intact. Limited upper abdomen unremarkable. Impression: Negative pulmonary embolus. Tiny right lung base calcified granuloma. No acute cardiopulmonary abnormalities. Comment: Preliminary interpretation was made by [facility]. No critical discrepancy.
--- NOTE | 2019-09-22 08:48 | XRAY ---
Indication: Chest pain. Comparison: None PA/lateral chest demonstrates normal heart, lungs, and bony thorax with a few incidental tiny calcified granulomas.
== END 2019-09-22 01:38 | disposition home or self-care (01) ==
LOC: ED 20:34
DX: R07.89 Other chest pain (principal); R94.30 Abnormal result of cardiovascular function study, unspecified
CPT/HCPCS: 36000; 36415; 71046; 71260; 80048; 82550; 84484; 85025; 85379; 96374; 99284; J1200; J1885

== ENCOUNTER 2020-05-22 15:56 | Emergency (ER) | payer BC ==
--- NOTE | 2020-05-22 16:28 | ERPHSYRPT ---
- History of Present Illness Time Seen by Provider: 05/22/20 16:26 Source: patient Exam Limitations: no limitations Patient Subjective Stated Complaint: pt here for pain to left wrist area after getting hit my a softball Triage Nursing Assessment: pt alert, walked in, face mask in place, resp easy,skin w/d/p.has reddenss and swelling to left wrist, strong radial pulse, Physician History: pt here for pain to left wrist area after getting hit by a softball, just happened 2 hours ago, c/o swelling, unable to move wrist Occurred: just prior to arrival Method of Injury: direct blow, sports injury Quality: constant Severity of Pain-Max: moderate Severity of Pain-Current: moderate Extremities Pain Location: forearm: left, wrist: left Modifying Factors: Improves With: cold therapy Associated Symptoms: none Allergies/Adverse Reactions: No Known Drug Allergies Allergy (Verified 05/22/20 16:09) Home Medications: Escitalopram Oxalate [Lexapro] 20 mg PO DAILY 09/14/18 [History] Norgestimate-Ethinyl Estradiol [Tri Femynor 28 Tablet] 1 ea PO DAILY 09/14/18 [History] Vortioxetine Hydrobromide [Trintellix] 10 mg PO DAILY 09/21/19 [History] Hx Influenza Vaccination/Date Given: No Hx Pneumococcal Vaccination/Date Given: No Immunizations Up to Date: Yes Travel Risk - International Travel Have you traveled outside of the country in past 3 weeks: No - Coronavirus Screening Are you exhibiting any of the following symptoms?: No Close contact with a COVID-19 positive Pt in past 14-21 Days: No - Review of Systems Constitutional: No Symptoms Eyes: No Symptoms Ears, Nose, & Throat: No Symptoms Respiratory: No Symptoms Cardiac: No Symptoms Abdominal/Gastrointestinal: No Symptoms Genitourinary Symptoms: No Symptoms Musculoskeletal: Joint Pain, Joint Swelling (left wrist) - Past Medical History Pertinent Past Medical History: No Neurological History: No Pertinent History ENT History: No Pertinent History Cardiac History: No Pertinent History Respiratory History: No Pertinent History Endocrine Medical History: No Pertinent History Musculoskeletal History: Other GI Medical History: No Pertinent History History: No Pertinent History Psycho-Social History: Anxiety Female Reproductive Disorders: No Pertinent History Other Medical History: RABDO, HYPERTENSION - Past Surgical History Past Surgical History: Yes Neuro Surgical History: No Pertinent History Cardiac: No Pertinent History Respiratory: No Pertinent History Gastrointestinal: No Pertinent History Genitourinary: No Pertinent History Musculoskeletal: Other Female Surgical History: No Pertinent History Other Surgical History: L THUMB, WISDOM TEETH EXTRACTION - Social History Smoking Status: Never smoker Exposure to second hand smoke: No Drug Use: none Patient Lives Alone: No - Female History Hx Last Menstrual Period: this week Hx Now: No - Nursing Vital Signs Nursing Vital Signs: Pain Scale Pain Intensity 6 - Physical Exam General Appearance: no apparent distress Eyes, Ears, Nose, Throat Exam: normal ENT inspection Neck Exam: normal inspection Cardiovascular/Respiratory Exam: chest non-tender Abdominal Exam: non-tender Back Exam: normal inspection Shoulder Exam: normal inspection Elbow/Forearm Exam: normal inspection Wrist Exam: ecchymosis, limited ROM, pain, soft tissue tenderness Hand Exam: normal inspection - Course Nursing assessment & vital signs reviewed: Yes - Radiology Exams Wrist X-ray Interpretation: Reviewed by me, Negative Forearm X-ray Interpretation: Reviewed by me, Negative Ordered Tests: Active Orders 24 hr Category Date Time Status FOREARM Stat Exams 05/22/20 16:25 Ordered WRIST (MIN 3 VIEWS) Stat Exams 05/22/20 16:25 Ordered Medication Summary Discontinued Medications Generic Name Dose Route Start Last Admin Trade Name Freq PRN Reason Stop Dose Admin Ketorolac Tromethamine 60 mg 05/22/20 16:47 Toradol 30 Mg Injection IM 05/22/20 16:48 STAT ONE - Progress Progress: improved, pain not gone completely Counseled pt/family regarding: diagnosis, need for follow-up, rad results - Departure Departure Disposition: Home Clinical Impression: Injury of left forearm and wrist Qualifiers: Encounter type: initial encounter Qualified Code(s): S59.912A - Unspecified injury of left forearm, initial encounter; S69.92XA - Unspecified injury of left wrist, hand and finger(s), initial encounter Condition: Stable Critical Care Time: No Referrals: JUANITA CARLSON NP [Primary Care Provider] - Follow Up with PCP/3 days Instructions: Wrist Sprain (DC) Additional Instructions: YVAN ASHLEY was seen on 05/22/20 n the Emergency Room. At that time you were treated for an emergent condition, during your visit Laboratory, Radiology and/or other procedures may have been ordered. It is very important that you follow-up with your Primary Care Physician JUANITA CARLSON within the next 24- 48 hours to review your Emergency Room visit and the final results of testing that was ordered. Some test results such as Urine Cultures, Blood Cultures, and other cultures if ordered will not be finalized for 24-48 hours. If you do not have a Primary Care Provider please call the medical records department at [phone] ext [phone] to obtain a copy of your results or you may sign into our patient portal to obtain these results by visiting us @ [email or web address] and completing the following steps: 1. Click on the Patient Portal link 2. Click the Patient Self Enrollment Link to complete the enrollment form and entering your 3. Once the enrollment form is completed you will receive an email with a temporary ID and password at the email address you provided. 4. Next choose a user name and password. Your user name must be at least 4 characters long and your password must be at least 4 characters long. 5. Choose a security question from the list and provide your answer to the q uestion. If you already have signed into the Health Portal you may access your Health Care Information 25/03 by the following steps: 1. Login to our website @ [email or web address] 2. Enter your original user name and password. FAQS The [facility] Health Portal is an online tool that contains your Lab Results, Radiology Reports, Visit History, Discharge Instructions and Health Summary Lab and Radiology Results will not be available for 72 hours on the portal. The Portal is a secure site, passwords are encryted and URLs are re-written so they cannot be copied and pasted. You and authorized family members are the only ones who can access your Portal. Also there is a timeout feature that protects your information if you leave the Portal page open. If you have technical difficulty please use the Contact Us link on the page this will allow you to submit any questions you have regarding the Portal or you may contact the Medical Record Department at [phone] ext [phone].
[2020-05-22] MEDS ORDERED: TORAdol 30 mg Injection IM ONE (16:47)
[2020-05-22] MEDS ORDERED: TORAdol 30 mg Injection ONE (16:54)
[2020-05-22 17:10] VITALS: PULSE 70; O2SAT 98
--- NOTE | 2020-05-22 19:22 | XRAY ---
Indication: Pain following softball injury. Comparison: None 3 view left wrist obtained. No bony, articular, or soft tissue abnormalities.
--- NOTE | 2020-05-22 19:22 | XRAY ---
Indication: Pain following softball injury. Comparison: None 2 view left forearm obtained. No bony, articular, or soft tissue abnormalities.
== END 2020-05-22 17:10 | disposition home or self-care (01) ==
LOC: ED 15:56
DX: S59.912A Unspecified injury of left forearm, initial encounter (principal); W21.07XA Struck by softball, initial encounter; Y93.64 Activity, baseball; Y92.9 Unspecified place or not applicable
CPT/HCPCS: 73090; 73110; 96372; 99284; J1885

== ENCOUNTER 2021-06-19 08:45 | Day surgery (SDC) | payer BC ==
--- NOTE | 2021-06-19 08:05 | HP ---
DATE OF SURGERY: 06/19/2021 HISTORY OF PRESENT ILLNESS: The patient is a 21 year-old with stools five to ten times a day. No bloody stools. No pain. Worse recently. Family history negative for colon cancer. Negative for irritable bowel disease. PAST MEDICAL HISTORY: Anxiety. PAST SURGICAL HISTORY: Left thumb surgery. [place] teeth in the past. MEDICATIONS: Lexapro. Trintellix. control pills. ALLERGIES: NKDA. FAMILY HISTORY: Diabetes. Negative for colon cancer. SOCIAL HISTORY: No smoking or alcohol abuse. She drinks two drinks a week. REVIEW OF SYSTEMS: Fourteen systems reviewed. No chest pain or palpitations. Other systems negative or noncontributory as above and per preadmission questionnaire. PHYSICAL EXAMINATION: GENERAL: No acute distress. HEENT: Sclerae nonicteric. NECK: No JVD. CHEST: Equal excursion, nonlabored breathing. CVS: Regular rate and rhythm. ABDOMEN: Soft. No peritoneal signs. EXTREMITIES: No significant edema. NEURO: Alert, oriented, moving extremities symmetrically. RECTAL: Deferred timed to endoscopy exam. PSYCH: Appropriate mood and affect. IMPRESSION: Change in bowel habits. The patient is need of colonoscopy to evaluate for colitis and to rule out etiology. Risks and benefits explained in detail including but not limited to bleeding or infection, risk of bowel injury or perforation possibly requiring open procedure, risk of missed or nondiagnosis or incomplete exam possibly requiring barium enema, other studies or procedures, possibility of inability to diagnose the etiology of her symptoms. She understands and agrees to the planned procedure and will proceed with colonoscopy under MAC anesthesia as an outpatient.
[2021-06-19] MEDS ORDERED: Lactated Ringers 1,000 ML IV SCH (09:30)
[2021-06-19] MEDS ORDERED: DIPRIVAN 200 MG/20 ML IV ONE ×3 (11:09→11:24)
[2021-06-19 12:20] VITALS: BP 126/77; PULSE 71; O2SAT 99
--- NOTE | 2021-06-19 14:42 | OP ---
SURGERY DATE/TIME: 06/19/2021 1109 PREOPERATIVE DIAGNOSIS: Change in bowel habits with multiple stools a day, need for evaluation for colitis, irritable bowel disease. POSTOPERATIVE DIAGNOSES: 1) Fair bowel prep. 2) Fair unremarkable ileum and colon otherwise. PROCEDURES: 1) Colonoscopy to terminal ileum. 2) Retrograde ileoscopy. 3) Random cold biopsy of ileum to evaluate for microscopic ileitis. 4) Random cold biopsies of the colon to evaluate for microscopic colitis. SURGEON: Eliel Mckeon M.D. COLD FOOD PACKER: Norbert Denton M.D. ANESTHESIA: MAC. ESTIMATED BLOOD LOSS: Minimal. INDICATIONS: As noted above. Risks and benefits explained in detail but not limited to and consent obtained. DESCRIPTION OF PROCEDURE AND FINDINGS: The patient is taken to the operating room. MAC anesthesia introduced. After official time out and no disagreement with planned procedure, digital rectal exam did not reveal any rectal masses. Video colonoscope inserted and passed up through the slightly tortuous sigmoid, descending, transverse, ascending colon around to the cecum. Up in the terminal ileum retrograde ileoscopy is performed which is grossly unremarkable. No signs of cobblestoning. Some random cold biopsies were taken to evaluate for microscopic ileitis. Otherwise the scope was carefully withdrawn over the next 8 minutes. She had some liquidy stool just slightly limiting the exam and overall fair bowel prep this is suction irrigated as clear as possible. Otherwise there were no signs of any large polyps, masses or obstructing lesions. There were no signs of any macroscopic inflammatory changes. Some random cold biopsies were taken throughout the colon to evaluate for microscopic colitis. The scope is withdrawn. Findings discussed with the family out in the waiting area.
== END 2021-06-19 12:38 | disposition home or self-care (01) ==
LOC: SDC 08:45
PROVIDERS: ATTEND Surgery
DX: R19.4 Change in bowel habit (principal); Z79.899 Other long term (current) drug therapy
CPT/HCPCS: 84703; 88305; J2704

== ENCOUNTER 2021-08-04 21:10 | Emergency (ER) | payer BC ==
[2021-08-04] MEDS ORDERED: Zofran 4 MG/2 ML VIAL IV ONE ×2 (21:48→22:29)
[2021-08-04] MEDS ORDERED: SUBLIMAZE 100 MCG/2 ML IV ONE ×2 (21:48→22:29)
[2021-08-04] MEDS ORDERED: Zofran 4 MG/2 ML VIAL ONE ×2 (21:51→22:32)
[2021-08-04] MEDS ORDERED: SUBLIMAZE 100 MCG/2 ML ONE ×2 (21:53→22:32)
[2021-08-04 22:05] LABS: Appearance CLEAR (CLEAR); Bilirubin NEGATIVE (NEGATIVE); Blood NEGATIVE Ery/ul (0-5); Glucose NEGATIVE (NEGATIVE); Ketones NEGATIVE (NEGATIVE); Leukocyte Esterase NEGATIVE (NEGATIVE); Nitrite NEGATIVE (NEGATIVE); Protein,Urine Dip NEGATIVE (Negative); Specific Gravity 1.017 (1.005-1.025); Urobilinogen NEGATIVE mg/dL (0-1)
[2021-08-04 22:07] LABS: Absolute Neutrophil Ct (ANC) 8.64 (1.4-6.9); BASOPHIL % 0.2 % (0.0-0.4); Basophil (Absolute #) 0.03 (0-0.4); Eosinophil % 1.5 % (0.00-5.0); Eosinophil (Absolute #) 0.18 (0-0.5); Hematocrit 38.1 % (35-47); Hemoglobin 12.6 gm/dl (12.0-16.0); Lymphocyte (Absolute #) 2.73 (1.0-4.6); Lymphocytes % 22.1 % (24.0-44.0); Mean Corpuscular Hemoglobin 30.4 pg (26-32); Mean Corpuscular Hgb Concent. 33.1 g/dl (32-36); Mean Platelet Volume 10.7 fl (7.5-11.0); Monocytes % 6.5 % (0.0-12.0); Neutrophil % 69.7 % (36.0-66.0); Platelet Count 312 K/mm3 (150-450); Red Blood Count 4.14 M/mm3 (4.1-5.4); Red Cell Distribution Width 12.3 % (11.5-14.0); White Blood Count 12.4 K/mm3 (4.0-10.5)
--- NOTE | 2021-08-04 22:11 | ERPHSYRPT ---
- History of Present Illness Historian: patient Exam Limitations: no limitations Patient Subjective Stated Complaint: pt states she had an appy on saturday and has had increased epigastric pain today and cramping pain in lt and rt upper quads Triage Nursing Assessment: pt alert and oriented, answers questions approp. pt ambulatory with steady gait noted. respirations nonlabored with lungs cta. abd soft and nontender with lap sites noted to umbilical, rlq, and suprapubic with dermabond. bowel sounds present x4. pt states she is passing flatus. Physician History: 21 yo wf s/p appy on 08/01/21 at [facility] in [place] presents w epigastric pain described as sharp and rated an 8 on scale x1day. Pain worse w movement. She has had N/V/D but denies hematemesis/melena/hematochezia/dysuria/hematuria/fever/cough. Timing/Duration: yesterday Activities at Onset: rest Quality: sharpness Abdominal Pain Onset Location: epigastric Pain Radiation: no radiation Severity of Pain-Max: severe Severity of Pain-Current: severe Modifying Factors: Improves With: movement Associated Symptoms: diarrhea, loss of appetite, nausea, vomiting, No back, No chest pain, No diaphoresis, No fever/chills, No fatigue, No headache, No heartburn, No neck pain, No rash, No shortness of breath, No syncope, No weakness Previous symptoms: recent hospitalization ([facility] 08/01/21) Allergies/Adverse Reactions: scopolamine Allergy (Intermediate, Verified 08/04/21 22:00) Swelling of Face Iodinated Contrast Media Allergy (Mild, Verified 08/04/21 23:00) Itching Home Medications: Escitalopram Oxalate [Lexapro] 20 mg PO DAILY 09/14/18 [History] Norgestimate-Ethinyl Estradiol [Tri Femynor 28 Tablet] 1 ea PO DAILY 09/14/18 [History] Vortioxetine Hydrobromide [Trintellix] 10 mg PO DAILY 09/21/19 [History] Gabapentin 300 mg [Neurontin 300 mg] 300 mg PO TID 08/04/21 [History] Ibuprofen [IBUPROFEN 400 MG TABLET] 1 tablet PO Q4H PRN PRN 08/04/21 [History] Methocarbamol 500 mg [Robaxin 500 MG] 500 mg PO Q4H PRN PRN 08/04/21 [History] Oxycodone HCl 5 mg PO Q4HPRN PRN 08/04/21 [History] Hx Tetanus, Diphtheria Vaccination/Date Given: Yes Hx Influenza Vaccination/Date Given: Yes Hx Pneumococcal Vaccination/Date Given: No Immunizations Up to Date: Yes Travel Risk - International Travel Have you traveled outside of the country in past 3 weeks: No - Coronavirus Screening Are you exhibiting any of the following symptoms?: No Close contact with a COVID-19 positive Pt in past 14-21 Days: No - Vaccine Status Have you recieved a Covid-19 vaccination: No Offline Cutter: Moderna - Vaccination Dates Date of 2cond Vaccination (if applicable): january 2021 - Review of Systems Constitutional: No Symptoms Eyes: No Symptoms Ears, Nose, & Throat: No Symptoms Respiratory: No Symptoms Cardiac: No Symptoms Abdominal/Gastrointestinal: No Symptoms, Abdominal Pain, Nausea, Vomiting, Diarrhea Genitourinary Symptoms: No Symptoms Musculoskeletal: No Symptoms Skin: No Symptoms Neurological: No Symptoms Psychological: No Symptoms Endocrine: No Symptoms Hematologic/Lymphatic: No Symptoms Immunological/Allergic: No Symptoms - Past Medical History Pertinent Past Medical History: Yes Neurological History: No Pertinent History ENT History: No Pertinent History Cardiac History: Hypertension Respiratory History: No Pertinent History Endocrine Medical History: No Pertinent History Musculoskeletal History: Other GI Medical History: No Pertinent History History: No Pertinent History Psycho-Social History: Anxiety, Depression Female Reproductive Disorders: No Pertinent History Other Medical History: 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" states "happened about 2018" - Past Surgical History Past Surgical History: Yes Neuro Surgical History: No Pertinent History Cardiac: No Pertinent History Respiratory: No Pertinent History Gastrointestinal: Appendectomy Genitourinary: No Pertinent History Musculoskeletal: Other Female Surgical History: No Pertinent History Other Surgical History: L THUMB tendon repair, WISDOM TEETH EXTRACTION, colonoscopy - Social History Smoking Status: Never smoker Exposure to second hand smoke: Yes Drug Use: none Patient Lives Alone: Yes - Female History Hx Last Menstrual Period: 07/20 Hx Now: No (neg test prior to or) - Nursing Vital Signs Nursing Vital Signs: Initial Vital Signs Temperature 98.4 F 08/04/21 21:19 Pulse Rate 89 08/04/21 21:19 Respiratory Rate 18 08/04/21 21:19 Blood Pressure 171/89 08/04/21 21:19 O2 Sat by Pulse Oximetry 98 08/04/21 21:19 Pain Scale Pain Intensity 4 Hypertensive - Physical Exam General Appearance: no apparent distress Eye Exam: PERRL/EOMI, eyes nml inspection Ears, Nose, Throat Exam: normal ENT inspection, TMs normal, pharynx normal, moist mucous membranes Neck Exam: normal inspection, non-tender, supple, full range of motion, No meningismus, No mass, No Brudzinski, No Kernig's Respiratory Exam: normal breath sounds, lungs clear, airway intact, No respi ratory distress Cardiovascular Exam: regular rate/rhythm, normal heart sounds, normal peripheral pulses, No murmur Gastrointestinal/Abdomen Exam: soft, normal bowel sounds, tenderness (Epigastric-RUQ TTP wo guarding or rebound), other (Laparoscopy incisions clean/dry/intact) Back Exam: normal inspection, normal range of motion Extremity Exam: normal inspection, normal range of motion Neurologic Exam: alert, oriented x 3, cooperative, 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, normal mood/affect, nml station & gait, sensation nml, No motor deficits, No sensory deficit Skin Exam: normal color, warm, dry Lymphatic Exam: No adenopathy SpO2 Interpretation: normal SpO2: 98 O2 Delivery: Oxymizer - Course Nursing assessment & vital signs reviewed: Yes - CT Exams Abdomen/Pelvis CT Interpretation: Tele-radiologist Report (Nothing acute prt telerad) Ordered Tests: Active Orders 24 hr Category Date Time Status IV Insertion STAT Care 08/04/21 21:47 Completed ABDOMEN AND PELVIS W/0 CONTRAS [CT] Stat Exams 08/04/21 22:59 Taken AMYLASE Stat Lab 08/04/21 22:00 Completed CBC W DIFF Stat Lab 08/04/21 22:00 Completed CMP Stat Lab 08/04/21 22:00 Completed HCG QUALITATIVE,SERUM Stat Lab 08/04/21 22:00 Completed LIPASE Stat Lab 08/04/21 22:00 Completed TROPONIN Q3H Lab 08/04/21 22:00 Completed UA W/RFX UR CULTURE Stat Lab 08/04/21 21:49 Completed Medication Summary Discontinued Medications Generic Name Dose Route Start Last Admin Trade Name Freq PRN Reason Stop Dose Admin Fentanyl Citrate 50 mcg 08/04/21 21:48 08/04/21 21:59 Fentanyl Citrate 100 Mcg/2 Ml* Vial IV 08/04/21 21:49 50 mcg STAT ONE Administration Fentanyl Citrate Confirm 08/04/21 21:53 Fentanyl Citrate 100 Mcg/2 Ml* Vial Administered 08/04/21 21:54 Dose 100 mcg .ROUTE .STK-MED ONE Fentanyl Citrate 50 mcg 08/04/21 22:29 08/04/21 22:35 Fentanyl Citrate 100 Mcg/2 Ml* Vial IV 08/04/21 22:30 50 mcg STAT ONE Administration Fentanyl Citrate Confirm 08/04/21 22:32 Fentanyl Citrate 100 Mcg/2 Ml* Vial Administered 08/04/21 22:33 Dose 100 mcg .ROUTE .STK-MED ONE Hydromorphone HCl 0.5 mg 08/05/21 00:16 08/05/21 00:20 Hydromorphone 1 Mg/1ml Inj 1 Mg/Ml Syringe IV 08/05/21 00:17 0.5 mg STAT ONE Administration Hydromorphone HCl Confirm 08/05/21 00:19 Hydromorphone 1 Mg/1ml Inj 1 Mg/Ml Syringe Administered 08/05/21 00:20 Dose 1 mg .ROUTE .STK-MED ONE Ondansetron HCl 4 mg 08/04/21 21:48 08/04/21 21:57 Ondansetron Hcl 4 Mg/2 Ml Vial IV 08/04/21 21:49 4 mg STAT ONE Administration Ondansetron HCl Confirm 08/04/21 21:51 Ondansetron Hcl 4 Mg/2 Ml Vial Administered 08/04/21 21:52 Dose 4 mg .ROUTE .STK-MED ONE Ondansetron HCl 4 mg 08/04/21 22:29 08/04/21 22:36 Ondansetron Hcl 4 Mg/2 Ml Vial IV 08/04/21 22:30 4 mg STAT ONE Administration Ondansetron HCl Confirm 08/04/21 22:32 Ondansetron Hcl 4 Mg/2 Ml Vial Administered 08/04/21 22:33 Dose 4 mg .ROUTE .STK-MED ONE Lab/Rad Data: Laboratory Result Diagrams 08/04/21 22:00 08/04/21 22:00 Laboratory Results 12/03/21 12/03/21 12/03/21 Range/Units 22:00 22:00 22:00 WBC (4.0-10.5) K/mm3 RBC (4.1-5.4) M/mm3 Hgb (12.0-16.0) gm/dl Hct (35-47) % MCV (78-100) fl MCH (26-32) pg MCHC (32-36) g/dl RDW (11.5-14.0) % Plt Count (150-450) K/mm3 MPV (7.5-11.0) fl Gran % (36.0-66.0) % Eos # (Auto) (0-0.5) Absolute Lymphs (auto) (1.0-4.6) Absolute Monos (auto) (0.0-1.3) Lymphocytes % (24.0-44.0) % Monocytes % (0.0-12.0) % Eosinophils % (0.00-5.0) % Basophils % (0.0-0.4) % Absolute Granulocytes (1.4-6.9) Basophils # (0-0.4) Sodium 137 (137-145) mmol/L Potassium 4.3 (3.5-5.1) mmol/L Chloride 105 (98-107) mmol/L Carbon Dioxide 24 (22-30) mmol/L Anion Gap 12.2 (5-15) MEQ/L BUN 14 (7-17) mg/dL Creatinine 0.73 (0.52-1.04) mg/dL Estimated GFR > 60.0 ML/MIN Glucose 89 (74-106) mg/dL Calcium 9.4 (8.4-10.2) mg/dL Total Bilirubin 0.40 (0.2-1.3) mg/dL AST 22 (14-36) U/L ALT 20 (0-35) U/L Alkaline Phosphatase 61 (38-126) U/L Troponin I 0.015 (0.000-0.034) ng/mL Serum Total Protein 6.7 (6.3-8.2) g/dL Albumin 3.9 (3.5-5.0) g/dL Amylase 49 (30-110) U/L Lipase 75 (23-300) U/L Serum , Qual NEGATIVE (Negative) Urine Color (YELLOW) Urine Appearance (CLEAR) Urine pH (5-6) Ur Specific [place] (1.005-1.025) Urine Protein (Negative) Urine Ketones (NEGATIVE) Urine Blood (0-5) Arnav/ul Urine Nitrite (NEGATIVE) Urine Bilirubin (NEGATIVE) Urine Urobilinogen (0-1) mg/dL Ur Leukocyte Esterase (NEGATIVE) Urine WBC (Auto) (0-5) /HPF Urine RBC (Auto) (0-2) /HPF U Epithel Cells (Auto) (FEW) /HPF Urine Bacteria (Auto) (NEGATIVE) /HPF Urine Culture Reflexed (NO) Urine Glucose (NEGATIVE) mg/dL 08/04/21 08/04/21 Range/Units 22:00 21:49 WBC 12.4 H (4.0-10.5) K/mm3 RBC 4.14 (4.1-5.4) M/mm3 Hgb 12.6 (12.0-16.0) gm/dl Hct 38.1 (35-47) % MCV 92.0 (78-100) fl MCH 30.4 (26-32) pg MCHC 33.1 (32-36) g/dl RDW 12.3 (11.5-14.0) % Plt Count 312 (150-450) K/mm3 MPV 10.7 (7.5-11.0) fl Gran % 69.7 H (36.0-66.0) % Eos # (Auto) 0.18 (0-0.5) Absolute Lymphs (auto) 2.73 (1.0-4.6) Absolute Monos (auto) 0.80 (0.0-1.3) Lymphocytes % 22.1 L (24.0-44.0) % Monocytes % 6.5 (0.0-12.0) % Eosinophils % 1.5 (0.00-5.0) % Basophils % 0.2 (0.0-0.4) % Absolute Granulocytes 8.64 H (1.4-6.9) Basophils # 0.03 (0-0.4) Sodium (137-145) mmol/L Potassium (3.5-5.1) mmol/L Chloride (98-107) mmol/L Carbon Dioxide (22-30) mmol/L Anion Gap (5-15) MEQ/L BUN (7-17) mg/dL Creatinine (0.52-1.04) mg/dL Estimated GFR ML/MIN Glucose (74-106) mg/dL Calcium (8.4-10.2) mg/dL Total Bilirubin (0.2-1.3) mg/dL AST (14-36) U/L ALT (0-35) U/L Alkaline Phosphatase (38-126) U/L Troponin I (0.000-0.034) ng/mL Serum Total Protein (6.3-8.2) g/dL Albumin (3.5-5.0) g/dL Amylase (30-110) U/L Lipase (23-300) U/L Serum , Qual (Negative) Urine Color YELLOW (YELLOW) Urine Appearance CLEAR (CLEAR) Urine pH 6.0 (5-6) Ur Specific [place] 1.017 (1.005-1.025) Urine Protein NEGATIVE (Negative) Urine Ketones NEGATIVE (NEGATIVE) Urine Blood NEGATIVE (0-5) Arnav/ul Urine Nitrite NEGATIVE (NEGATIVE) Urine Bilirubin NEGATIVE (NEGATIVE) Urine Urobilinogen NEGATIVE (0-1) mg/dL Ur Leukocyte Esterase NEGATIVE (NEGATIVE) Urine WBC (Auto) NONE (0-5) /HPF Urine RBC (Auto) NONE (0-2) /HPF U Epithel Cells (Auto) NONE (FEW) /HPF Urine Bacteria (Auto) NONE (NEGATIVE) /HPF Urine Culture Reflexed NO (NO) Urine Glucose NEGATIVE (NEGATIVE) mg/dL - Progress Progress: improved Progress Note: 08/05/21 00:24 Inspect-no findings 08/05/21 00:26 50umg IV Fentanyl/4mg IV Zofran wo pain relief 50umg IV Fentanyl wo relief 0.5mg IV Dilaudid 08/05/21 00:31 CT results reviewed w pt Counseled pt/family regarding: lab results, diagnosis, need for follow-up, rad results - Departure Departure Disposition: Home Clinical Impression: Abdominal pain Condition: Stable Critical Care Time: No Referrals: JUANITA CARLSON NP [Primary Care Provider] - Follow up/PCP as directed Instructions: Acute Abdomen (Belly Pain), Adult (DC) Additional Instructions: Follow up with your surgeon Return to ER for increasing pain or temperature greater than 100.5
[2021-08-04 22:24] LABS: ALBUMIN 3.9 g/dL (3.5-5.0); ALKALINE PHOSPHATASE 61 U/L (38-126); AMYLASE 49 U/L (30-110); ANION GAP 12.2 MEQ/L (5-15); BLOOD UREA NITROGEN 14 mg/dL (7-17); CHLORIDE 105 mmol/L (98-107); Calcium 9.4 mg/dL (8.4-10.2); Carbon Dioxide 24 mmol/L (22-30); Creatinine 1 0.73 mg/dL (0.52-1.04); EST GLOMERULAR FILTRATION RATE > 60.0 ML/MIN; Glucose 89 mg/dL (74-106); LIPASE 75 U/L (23-300); Potassium 4.3 mmol/L (3.5-5.1); SGOT/AST 22 U/L (14-36); SGPT/ALT 20 U/L (0-35); SODIUM 137 mmol/L (137-145); Total Protein 6.7 g/dL (6.3-8.2)
[2021-08-05] MEDS ORDERED: Hydromorphone 1 mg/ml Injection IV ONE (00:16)
[2021-08-05] MEDS ORDERED: Hydromorphone 1 mg/ml Injection ONE (00:19)
[2021-08-05 00:51] VITALS: BP 128/78; PULSE 62
[2021-08-05 01:18] VITALS: O2SAT 98
--- NOTE | 2021-08-05 08:15 | XRAY ---
Indication: Postoperative pain following appendectomy 3 days ago. Elevated WBC. Multiple contiguous axial images obtained through the abdomen and pelvis without contrast. Comparison: None Lung bases demonstrates minimal right basilar dependent atelectasis and tiny right costophrenic angle calcified granuloma. Heart not enlarged. Noncontrasted stomach and bowel loops appear nonobstructed. Appendectomy without free fluid/air. Remaining liver, gallbladder, pancreas, spleen, adrenal glands, kidneys, ureters, bladder, uterus, and aorta are unremarkable for noncontrast exam. Osseous structures intact. No abdominal wall fluid/air collection or hernias. Impression: 1. Status post appendectomy without complications. 2. Remaining CT abdomen/pelvis without contrast exam is negative. Comment: Preliminary interpretation made by [facility]. No critical discrepancy.
== END 2021-08-05 00:51 | disposition home or self-care (01) ==
LOC: ED 21:10
DX: R10.13 Epigastric pain (principal); R11.2 Nausea with vomiting, unspecified; R19.7 Diarrhea, unspecified; Z79.891 Long term (current) use of opiate analgesic; I10 Essential (primary) hypertension
CPT/HCPCS: 36000; 36415; 74176; 80053; 81001; 81025; 82150; 83690; 84484; 85025; 96374; 96375; 96376; 99284; J1170; J2405; J3010